=== PATIENT | female | born 1985 | race Caucasian/White ===

== ENCOUNTER 2020-04-21 08:00 | Outpatient (CLI) | payer MEDICAID ==
[2020-04-21 19:32] LABS: TRICHOMONAS VAGINALIS DNA NEGATIVE (NEGATIVE)
== END 2020-04-21 23:59 | disposition home or self-care (01) ==
LOC: LAB.R 08:00
PROVIDERS: ATTEND Obstetrics & Gynecology
DX: Z11.3 Encounter for screening for infections with a predominantly sexual mode of transmission (principal); Z12.4 Encounter for screening for malignant neoplasm of cervix
CPT/HCPCS: 87491; 87591; 87661

== ENCOUNTER 2020-05-15 18:01 | Outpatient (CLI) | payer MEDICAID ==
--- NOTE | 2020-05-16 09:43 | Ultrasound Report ---
PROCEDURE: OB Detailed Eval INDICATIONS: ANTENATEL SCREENING FOR OTHER GENETIC DEFECTS OUTSIDE/PRIOR DATING DATA: Last menstrual period (LMP): 11/19/2019. LMP-based estimated date of delivery (MIKA): 08/25/2020. First dating scan (date and location): 01/04/2020. Estimated date of delivery (MIKA) from first dating scan: 08/24/2020. TECHNIQUE: Real-time scanning was performed of the fetus, with image documentation and biometric measurements. Endovaginal scanning: Not performed COMPARISON: [facility] 01/04/2020. FINDINGS: General: A single living intrauterine gestation is present. Presentation: Cephalic. Placenta: Placental position is posterior, without previa. Amniotic fluid index: 13.8 cm. 38 percentile. heart rate: 162 beats per minute. Maternal cervical canal: Not well seen. biometrics: Biparietal diameter: 6.4 cm, 26 weeks 1 day. Head circumference: 23.7 cm, 25 weeks 6 days. Abdominal circumference: 20.7 cm, 25 weeks 2 days Femur length: 4.8 cm, 26 weeks 2 days. Estimated gestational age from initial scan: 25 weeks 4 days. Composite gestational age from present scan: 25 weeks 6 days Estimated weight and percentile: 852 g, 48th percentile Measurement variability in biometric dating: +/- 10 days from 12-20 weeks gestation, +/- 2 weeks from 20-30 weeks gestation, +/- 3 weeks at 30 weeks gestation or later. Anatomic survey: Neuro: Not well seen. Nuchal skin fold: Not well seen. Face: Nose and lips, facial profile are normal. Coronal face view not well seen. Spine: Not well seen. Heart: 4-chambered heart is present, with normal ventricular outflow tracts. Diaphragm: Diaphragm is intact. Stomach: Left-sided stomach is present. Kidneys: No hydronephrosis. Normal is less than 5 mm in 2nd trimester, less than 7 mm in 3rd trimester. Cord: 3 vessel cord has orthotopic insertion. Bladder: Normal in size. Extremities: All 4 extremities are visualized. IMPRESSION: 1. Ward living intrauterine at 25 weeks 6 days based on today's ultrasound. This is co ncordant with the first trimester ultrasound. There is expected interval growth. 2. Normal placenta and amniotic fluid. 3. brain, nuchal fold, coronal facial structures, and spine not well seen due to position . The visualized structures are normal. -Recommend follow-up OB ultrasound. Reviewed by: Neftali Loja MD on 05/16/2020 9:42 AM PDT Approved by: Neftali Loja MD on 05/16/2020 9:42 AM PDT Station ID: [id number]
== END 2020-05-15 18:02 | disposition home or self-care (01) ==
LOC: DI 18:01
PROVIDERS: ATTEND Obstetrics & Gynecology
DX: Z36.8A Encounter for antenatal screening for other genetic defects (principal)
CPT/HCPCS: 76811

== ENCOUNTER 2020-05-17 19:03 | Outpatient (CLI) | payer MEDICAID ==
[2020-05-17 19:41] LABS: BASOPHILS % (AUTO) 0.3 %; EOSINOPHILS # (AUTO) 0.2 10^3/uL (0.0-0.7); EOSINOPHILS % (AUTO) 1.4 %; HGB - HEMOGLOBIN 11.6 g/dL (12.0-16.0); LYMPHOCYTES # (AUTO) 1.5 10^3/uL (1.5-3.5); LYMPHOCYTES % (AUTO) 10.4 %; MEAN CORPUSCULAR HEMOGLOBIN 29.9 pg (27.0-31.0); MEAN CORPUSCULAR HGB CONC 32.6 g/dL (32.0-36.0); MEAN CORPUSCULAR VOLUME 91.8 fL (81.0-99.0); MEAN PLATELET VOLUME 10.3 fL (7.9-10.8); MONOCYTES # (AUTO) 0.7 10^3/uL (0.0-1.0); MONOCYTES % (AUTO) 4.7 %; NEUTROPHILS # (AUTO) 11.9 10^3/uL (1.5-6.6); NEUTROPHILS % (AUTO) 81.6 %; PLT - PLATELET COUNT 214 10^3/uL (130-450); RED BLOOD COUNT 3.88 10^6/uL (4.20-5.40); WHITE BLOOD COUNT 14.6 x10^3/uL (4.8-10.8)
[2020-05-17 19:44] LABS: BILIRUBIN,URINE NEGATIVE (NEGATIVE); GLUCOSE, URINE (UA) NEGATIVE (NEGATIVE); KETONES,URINE (UA) TRACE mg/dL (NEGATIVE); LEUKOCYTE ESTERASE, URINE NEGATIVE (NEGATIVE); NITRITE,URINE NEGATIVE (NEGATIVE); OCCULT BLOOD,URINE NEGATIVE (NEGATIVE); PH,URINE 5.5 PH (5.0-7.5); PROTEIN,URINE NEGATIVE (NEGATIVE); UROBILINOGEN,URINE 0.2 (NORMAL) E.U./dL (NORMAL)
[2020-05-17 19:50] LABS: BACTERIA,URINE None Seen /HPF (None Seen); CLARITY,URINE CLEAR (CLEAR); RBC,URINE 0-5 /HPF (0-5); SQUAMOUS EPITHELIAL CELL,UR NONE SEEN (<= Few)
[2020-05-17 19:51] LABS: AMORPHOUS SEDIMENT,UR Few /LPF
[2020-05-19 11:37] LABS: HIV AG/AB 4TH GEN NON-REACTIVE (NON-REACTIVE)
[2020-05-19 13:22] LABS: HEPATITIS B SURFACE ANTIGEN NON-REACTIVE (NON-REACTIVE); HEPATITIS C ANTIBODY NON-REACTIVE (NON-REACTIVE)
== END 2020-05-17 19:04 | disposition home or self-care (01) ==
LOC: LAB 19:03
PROVIDERS: ATTEND Obstetrics & Gynecology
DX: Z34.90 Encounter for supervision of normal pregnancy, unspecified, unspecified trimester (principal); Z36.8A Encounter for antenatal screening for other genetic defects
CPT/HCPCS: 36415; 81001; 81220; 81599; 85025; 86592; 86762; 86803; 86850; 86900; 86901; 87086; 87340; 87389; 87491; 87591

== ENCOUNTER 2020-05-24 19:51 | Outpatient (CLI) | payer MEDICAID ==
[2020-05-24 20:17] LABS: HGB - HEMOGLOBIN 12.1 g/dL (12.0-16.0); MEAN CORPUSCULAR HEMOGLOBIN 29.3 pg (27.0-31.0); MEAN CORPUSCULAR HGB CONC 31.7 g/dL (32.0-36.0); MEAN CORPUSCULAR VOLUME 92.5 fL (81.0-99.0); RED BLOOD COUNT 4.13 10^6/uL (4.20-5.40); RED CELL DISTRIBUTION WIDTH 13.1 % (12.0-15.0); WHITE BLOOD COUNT 12.7 x10^3/uL (4.8-10.8)
[2020-05-24 20:19] LABS: ALBUMIN 3.2 g/dL (3.2-5.5); ALBUMIN/GLOBULIN RATIO 0.8 (1.0-2.2); BILIRUBIN,TOTAL 0.7 mg/dL (0.2-1.0); CALCIUM 8.8 mg/dL (8.5-10.3); CREATININE 0.6 mg/dL (0.4-1.0)
[2020-05-28 15:45] LABS: CHENODEOXYCHOLIC ACID 0.7 umol/L (< OR = 3.1); CHOLIC ACID 0.6 umol/L (< OR = 1.8); DEOXYCHOLIC ACID <0.5 umol/L (< OR = 2.4)
== END 2020-05-24 19:52 | disposition home or self-care (01) ==
LOC: LAB 19:51
PROVIDERS: ATTEND Obstetrics & Gynecology
DX: O99.719 Diseases of the skin and subcutaneous tissue complicating pregnancy, unspecified trimester (principal); L29.9 Pruritus, unspecified; Z3A.00 Weeks of gestation of pregnancy not specified
CPT/HCPCS: 36415; 80053; 82542; 85027; 86850

== ENCOUNTER 2020-07-07 15:42 | Outpatient (CLI) | payer MEDICAID ==
--- NOTE | 2020-07-08 17:11 | Ultrasound Report ---
PROCEDURE: OB F/U or Repeat INDICATIONS: SUPER OF NORMAL , COMP OF FAS OUTSIDE/PRIOR DATING DATA: Last menstrual period (LMP): 11/19/2019. LMP-based estimated date of delivery (MIKA): 08/25/2020. First dating scan (date and location): 01/04/2020. Estimated date of delivery (MIKA) from first dating scan: 08/24/2020. TECHNIQUE: Real-time scanning was performed of the fetus, with image documentation and biometric measurements. Endovaginal scanning: Not performed COMPARISON: None. FINDINGS: General: A single living intrauterine gestation is present. Presentation: Vertex Placenta: Placental position is posterior, without previa. Amniotic fluid index: 11.1 cm cm, 19th percentile for gestational age. Largest pocket measured 4.3 cm heart rate: 132 beats per minute. Maternal cervical canal: Not well seen secondary to positioning and advanced gestational age. Estimated gestational age from initial scan: 33 weeks and 1 day. Other: Evaluation of the intracranial structures is limited secondary to positioning and advanc ed gestational age. Coronal views of the face and spine appear within normal limits. Limited vi sualization of the chest/diaphragm, stomach/abdomen, bilateral kidneys, and urinary bladder barbara ear unremarkable. IMPRESSION: Single living intrauterine gestation with estimated gestational age of approximately 33 weeks and 1 d ay. Limited evaluation of the intracranial structures secondary to gestational size/advanced gestat ional age. The coronal images of the face and spine appear within normal limits. Four-quadrant DOMINGO measuring 11.1 cm with largest vertical pocket of 4.3 cm. Reviewed by: Ti Hurd MD on 07/08/2020 4:09 PM [facility] Approved by: Ti Hurd MD on 07/08/2020 4:09 PM [facility] Station ID: [id number]
== END 2020-07-07 15:43 | disposition home or self-care (01) ==
LOC: DI 15:42
PROVIDERS: ATTEND Obstetrics & Gynecology
DX: Z34.93 Encounter for supervision of normal pregnancy, unspecified, third trimester (principal)
CPT/HCPCS: 76816

== ENCOUNTER 2021-12-13 15:26 | Emergency (ER) | payer MEDICAID ==
--- NOTE | 2021-12-13 15:39 | ED Physician Documentation ---
PD HPI NVD - Stated complaint Stated Complaint: VOMITTING - Chief complaint Chief Complaint: Abd Pain - History obtained from History obtained from: Patient - History of Present Illness Timing - onset: How many days ago (2-3) Timing - duration: Days (2-3) Timing - details: Abrupt onset (nausea and repetitive vomiting, worse with attempted oral intake. No diarrhea nor URI symptoms.), Still present Associated symptoms: Abdominal pain (mild cramping intermittently.), Loss of appetite, Other (no diarrhea). No: Fever, Hematemesis, Near syncope / syncope (but was lightheaded with standing up.), Dysuria Contributing factors: Other (early about 5 weeks EGA by dates.). No: Sick contact, Bad food, Diabetes Similar symptoms before: Diagnosis (She has had similar nausea and vomiting with prior pregnancies. She said she has 4 kids at home and then had a miscarriage t his past September.) Review of Systems Constitutional: denies: Fever, Chills Nose: denies: Rhinorrhea / runny nose, Congestion Throat: denies: Sore throat Respiratory: denies: Cough GI: reports: Abdominal Pain (intermittent lower cramps.), Nausea, Vomiting. den ies: Diarrhea : reports: LMP (5 weeks ago). denies: Dysuria, Discharge, Vaginal bleeding Neurologic: reports: Generalized weakness. denies: Focal weakness, Numbness, Near syncope PD PAST MEDICAL HISTORY - Past Medical History Cardiovascular: None Respiratory: None Endocrine/Autoimmune: None GI: None - Present Medications Home Medications: Ambulatory Orders Medication Instructions Recorded Confirmed Citalopram Hydrobromide [Celexa] 20 mg ORAL DAILY 12/13/21 12/13/21 Doxylamine Succinate [Unisom Sleep 25 mg PO Q8H PRN #30 tablet 12/13/21 Aid] Famotidine [Pepcid] 20 mg PO DAILY #15 tablet 12/13/21 Ondansetron Odt [Zofran] 4 mg TL Q6H PRN #25 tablet 12/13/21 Pyridoxine HCl (Vitamin B6) 25 mg PO BID 30 Days #60 tablet 12/13/21 [Vitamin B-6] hydrOXYzine HCL [Hydroxyzine HCl] 25 mg PO BID 12/13/21 12/13/21 - Allergies Allergies/Adverse Reactions: Allergies Allergy/AdvReac Type Severity Reaction Status Date / Time No Known Drug Allergies Allergy Verified 12/13/21 15:29 PD ED PE NORMAL - Vitals Vital signs reviewed: Yes - General General: Alert and oriented X 3, Well developed/nourished - HEENT HEENT: Pharynx benign. No: Moist mucous membranes - Neck Neck: Supple, no meningeal sign, No adenopathy - Cardiac Cardiac: RRR, No murmur - Respiratory Respiratory: Clear bilaterally - Abdomen Abdomen: Soft, Non tender, Non distended - Female Female : Deferred - Back Back: No CVA TTP - Derm Derm: Normal color, Warm and dry - Neuro Neuro: Alert and oriented X 3, No motor deficit, Normal speech Results - Vitals Vitals: Vital Signs - 24 hr 12/13/21 15:30 Temperature 36.1 C L Heart Rate 87 Respiratory 18 Rate Blood Pressure 131/76 H O2 Saturation 99 Oxygen O2 Source Room air - Labs Labs: Laboratory Tests 12/13/21 12/13/21 12/13/21 16:13 16:13 16:13 WBC 11.7 H RBC 4.31 Hgb 12.8 Hct 38.0 MCV 88.2 MCH 29.7 MCHC 33.7 RDW 12.6 Plt Count 215 MPV 10.4 Neut # (Auto) 9.7 H Lymph # (Auto) 1.2 L Caldwell # (Auto) 0.6 Eos # (Auto) 0.0 Baso # (Auto) 0.0 Absolute Nucleated RBC 0.00 Nucleated RBC % 0.0 Sodium 134 L Potassium 3.6 Chloride 100 L Carbon Dioxide 23 Anion Gap 11.0 BUN 8 Creatinine 0.5 Estimated GFR (MDRD) 141 Glucose 97 Calcium 9.1 Magnesium 1.9 Total Bilirubin 1.3 H AST 15 ALT 14 Alkaline Phosphatase 48 Total Protein 7.8 Albumin 4.5 Globulin 3.3 Albumin/Globulin Ratio 1.4 Lipase 28 HCG, Quant 87591.00 - Rads (name of study) OB ultrasound Radiology: Prelim report reviewed (normal IUP 6w5d iwth +FHR. Small subchorionic bleed 1.2 cm. ), See rad report PD MEDICAL DECISION MAKING - ED course Complexity details: re-evaluated patient (feeling much improved with meds and fluids. ), considered differential (Several days nausea and vomiting and feeling lightheaded. Early by home test. No current diarrhea nor URI symptoms. Presume hyperemesis gravidarum rather than infectious cause. Will give IV fluids and medications.), d/w patient Departure - Departure Clinical Impression: Dehydration, Early stage of Nausea and vomiting Qualifiers: Vomiting type: unspecified Qualified Code(s): R11.2 - Nausea with vomiting, unspecified Condition: Stable Record reviewed to determine appropriate education?: Yes Instructions: ED Preg Morning Sickness Prescriptions: Famotidine [Pepcid] 20 mg PO DAILY #15 tablet Doxylamine Succinate [Unisom Sleep Aid] 25 mg PO Q8H PRN #30 tablet PRN Reason: Nausea / Vomiting Pyridoxine HCl (Vitamin B6) [Vitamin B-6] 25 mg PO BID 30 Days #60 tablet Ondansetron Odt [Zofran] 4 mg TL Q6H PRN #25 tablet PRN Reason: Nausea / Vomiting Comments: Presume your nausea and vomiting are related to the . We will treat it accordingly with vitamin B6 twice daily regularly and adding doxylamine 3 times a day as needed for nausea. In particular he can take it nightly to help with sleep anyway. Use ondansetron every 6-8 hours if needed for nausea as well. Your stomach is likely irritated from the vomiting and will continue a bit irritated so some acid reducing medicine for the next couple of weeks would be appropriate as well. Famotidine 20 mg daily. Tylenol every 4-6 hours if needed for pains. Follow-up with your primary care for further treatment. I transmitted your prescriptions to [facility] pharmacy in [place].
--- OUTSIDE RECORDS SUMMARY | 2021-12-13 15:43 | EXTERNAL MEDICAL SUMMARY RPT | Continuity of Care Document ---
:1985 Author Organization [facility] Address [address] [place] [address] Phone Care Team Providers Name Role Phone Stanislav Unavailable Unavailable Stanislav Unavailable Unavailable Allergies No information. Encounters No information. Medications date description facility [id number] Cephalexin 500 MG Oral Capsule [facility] Problems date description facility [id number] Hemorrhage in early , unspecif ied [facility] [id number] Dysuria [facility] Procedures date description facility [id number] [facility] [id number] [facility] [id number] [facility] Results No information. Vital Signs date measurement value source [id number] weight_standard 158.42 lb [id number] weight_metric 71.86 kg [id number] temperature_standard 97.9 F [id number] temperature_metric 36.61 C 20210927 respiration_rate 16 /min [id number] height_standard 63 in [id number] height_metric 160.02 cm 20210927 heart_rate 102 /min [id number] BP_systolic 112 mm[Hg] 20210927 BP_diastolic 74 mm[Hg] 20210927 BMI 28.0 kg/m2 20210929 weight_standard 71.67 lb [id number] weight_metric 32.51 kg [id number] temperature_standard 98.1 F [id number] temperature_metric 36.72 C 20210929 respiration_rate 16 /min 20210929 height_standard 63 in [id number] height_metric 160.02 cm 20210929 heart_rate 67 /min 20210929 BP_systolic 113 mm[Hg] 20210929 BP_diastolic 75 mm[Hg] 20210929 BMI 28.0 kg/m2
[2021-12-13] MEDS ORDERED: SODIUM CHLORIDE 0.9% 1,000 ML IV STA ×2 (15:58→16:02)
[2021-12-13] MEDS ORDERED: ONDANSETRON 4 MG/2 ML VIAL IVP STA (15:58)
[2021-12-13] MEDS ORDERED: FAMOTIDINE 20 MG/2 ML VIAL IVP STA (16:01)
[2021-12-13 16:19] LABS: BASOPHILS % (AUTO) 0.2 %; EOSINOPHILS % (AUTO) 0.3 %; HGB - HEMOGLOBIN 12.8 g/dL (12.0-16.0); LYMPHOCYTES # (AUTO) 1.2 10^3/uL (1.5-3.5); LYMPHOCYTES % (AUTO) 10.5 %; MEAN CORPUSCULAR HEMOGLOBIN 29.7 pg (27.0-31.0); MEAN CORPUSCULAR HGB CONC 33.7 g/dL (32.0-36.0); MEAN CORPUSCULAR VOLUME 88.2 fL (81.0-99.0); MEAN PLATELET VOLUME 10.4 fL (7.9-10.8); MONOCYTES # (AUTO) 0.6 10^3/uL (0.0-1.0); MONOCYTES % (AUTO) 5.3 %; NEUTROPHILS # (AUTO) 9.7 10^3/uL (1.5-6.6); NEUTROPHILS % (AUTO) 83.2 %; PLT - PLATELET COUNT 215 10^3/uL (130-450); RED BLOOD COUNT 4.31 10^6/uL (4.20-5.40); RED CELL DISTRIBUTION WIDTH 12.6 % (12.0-15.0); WHITE BLOOD COUNT 11.7 x10^3/uL (4.8-10.8)
[2021-12-13 16:35] LABS: ALBUMIN 4.5 g/dL (3.2-5.5); ALBUMIN/GLOBULIN RATIO 1.4 (1.0-2.2); BILIRUBIN,TOTAL 1.3 mg/dL (0.2-1.0); CALCIUM 9.1 mg/dL (8.5-10.3); CREATININE 0.5 mg/dL (0.4-1.0); MAGNESIUM 1.9 mg/dL (1.7-2.8); POTASSIUM 3.6 mmol/L (3.5-5.0); TOTAL PROTEIN 7.8 g/dL (6.7-8.2)
[2021-12-13 17:39] VITALS: BP 128/67
--- NOTE | 2021-12-13 17:45 | Ultrasound Report ---
PROCEDURE: OB First Trimester INDICATIONS: vomiting, early OUTSIDE/PRIOR DATING DATA: Last menstrual period (LMP): 11/09/2021. LMP-based estimated date of delivery (MIKA): 08/16/2022. First dating scan (date and location): 12/13/2021. Estimated date of delivery (MIKA) from first dating scan: 08/03/2022. The below data below was generated using the ultrasound MIKA of 08/03/2022 TECHNIQUE: Real-time scanning was performed of the fetus and maternal pelvic organs, with image documentation. COMPARISON: None FINDINGS: Embryo: Penfield-rump length measures 0.75 cm, 6 weeks 5 days Heart rate: 126 bpm Measurement variability in dating: +/- 4 weeks by LMP, +/- 7 days by mean sac diameter (use before 6 weeks gestation if crown-rump length not able to be measured), +/- 5 days by crown-rump length (6-12 weeks gestation). Maternal organs: A right ovarian corpus luteum is seen. IMPRESSION: Early living first trimester intrauterine with crown-rump length and heart beat measuring 6 weeks 5 days. Reviewed by: Malachi Parekh MD on 12/13/2021 5:44 PM PDT Approved by: Malachi Parekh MD on 12/13/2021 5:44 PM PDT Station ID: [id number]
== END 2021-12-13 17:41 | disposition home or self-care (01) ==
LOC: ED 15:26
DX: O99.281 Endocrine, nutritional and metabolic diseases complicating pregnancy, first trimester (principal); E86.0 Dehydration; Z3A.01 Less than 8 weeks gestation of pregnancy
CPT/HCPCS: 36415; 80053; 83690; 83735; 84702; 85025; 96361; 96374; 99282